=== PATIENT | female | born 1995 | race African-American/Black ===

== ENCOUNTER 2018-11-09 13:22 | Inpatient (IN) | payer OTHER ==
[~2018-11-09] VITALS: Ht 170.2 cm; Wt 68.3 kg
[2018-11-09 14:26] LABS: AMPHETAMINES LEVEL URINE NEGATIVE (NEGATIVE); BARBITURATES URINE NEGATIVE (NEGATIVE); BENZODIAZEPINES URINE NEGATIVE (NEGATIVE); CANNABINOIDS URINE NEGATIVE (NEGATIVE); COCAINE METABOLITE URINE NEGATIVE (NEGATIVE); METHADONE URINE NEGATIVE (NEGATIVE); OPIATES URINE NEGATIVE (NEGATIVE); PHENCYCLIDINE URINE NEGATIVE (NEGATIVE)
[2018-11-09 15:11] LABS: HCG, SERUM QUALITATIVE NEGATIVE (NEGATIVE)
[2018-11-09 15:19] LABS: HEMATOCRIT 41.4 % (36.0-47.0); HEMOGLOBIN 14.5 g/dl (12.0-15.5); MEAN CORPUSCULAR HEMOGLOBIN 32.6 pg (27.0-33.0); PLATELET COUNT, AUTOMATED 269 10^3/uL (150-450); RED BLOOD COUNT 4.45 10^6/uL (4.00-5.40); WHITE BLOOD COUNT 6.6 10^3/uL (4.0-10.0)
[2018-11-09 15:27] LABS: ACETAMINOPHEN LEVEL < 2.0 UG/ML (10.0-30.0); ALBUMIN 4.3 GM/DL (3.2-5.2); ALT/SGPT 21 U/L (12-78); BILIRUBIN,DIRECT 0.2 MG/DL (0.0-0.2); BILIRUBIN,TOTAL 0.8 MG/DL (0.2-1.0); BLOOD UREA NITROGEN 11 MG/DL (7-18); CALCIUM LEVEL 8.8 MG/DL (8.5-10.1); CARBON DIOXIDE LEVEL 21 MEQ/L (21-32); CHLORIDE LEVEL 107 MEQ/L (98-107); ETHYL ALCOHOL (ETHANOL) < 0.003 % (0.000-0.010); GLOMERULAR FILTRATION RATE > 60.0 (>60); GLUCOSE, FASTING 81 MG/DL (70-100); POTASSIUM SERUM 4.3 MEQ/L (3.5-5.1); SALICYLATE LEVEL < 1.7 MG/DL (5.0-30.0); SODIUM LEVEL 140 MEQ/L (136-145); THYROID STIMULATING HORMONE 0.567 uIU/ML (0.358-3.740); TOTAL PROTEIN 7.6 GM/DL (6.4-8.2)
[2018-11-09] MEDS ORDERED: MOM 30ML SUSPENSION UDC PO PRN (17:15)
[2018-11-09] MEDS ORDERED: ACETAMINOPHEN TAB 650MG DOSE (2X325MG) PO PRN (17:15)
[2018-11-09] MEDS ORDERED: MAALOX 30 ML SUSP *UDC PO PRN (17:15)
[2018-11-09] MEDS ORDERED: traZODone 50 MG TAB PO PRN (17:15)
[2018-11-09 17:47] VITALS: BP 123/64
[2018-11-10 06:20] VITALS: BP 114/58
--- NOTE | 2018-11-10 10:13 | HPEPDOC ---
[facility] Medical History & Physical Date of Admission Nov 09, 2018 History and Physical PCP: [facility] ATTENDING: Dr. Huber Candelario HPI: 23 yoF admitted to [facility] for unspecified depressive disorder, being medically examined today. No acute medical complaints today. Denies any fevers, chills, weakness, fatigue, GRIFFITH, CP, SOB, cough, palpitations, abdominal pain, N/V/D or changes in bowel or bladder habits. PMHx: Depression History of SI PSHX: Denies SOCHX: Resides in: [facility], from [place] Marital Status: Single Kids: None Employment: Active duty Tobacco use: One pack per day ETOH: Denies Illicit Drugs: Denies IV Drug Use: Denies Tattoos done unprofessionally: Denies FAMHX: Mother: Unknown Father: Unknown Siblings: 4 Alive, well Children: None Unexpected deaths due to medical reasons: None. ROS: As noted in HPI, otherwise 11pt ROS of systems reviewed and remarkable only for LMP 11/10/18 PE: GEN: 23 yo F, appears stated age. Well-nourished, well developed. No acute distress. Alert and oriented x 3. Pleasant, interactive. HEENT: Normocephalic, atraumatic. Pupils are equal, round, and reactive to light. Extraocular movements are intact. No nystagmus appreciated. Sclera are nonicteric. Conjunctiva without injection. Nose midline. Nasal turbinates without bogginess. EACs both patent BL. TMs both visualized and morrison with good cone of light, no bulging or erythema. No facial asymmetry. Moist mucous membranes. Dentition fair. Pharynx pink and moist, no cobblestoning. Neck supple, trachea midline. No lymphadenopathy or thyromegaly appreciated. CHEST: Regular rate and rhythm, +S1, +S2 LUNGS: Clear to auscultation bilaterally. No wheezes, rales, or rhonchi. Breathing appears symmetric and easy. Patient is speaking in full sentences. No accessory muscle use. ABD: Round, soft, non-tender, non-distended. +Bowel sounds throughout. No rebound or guarding. No costovertebral angle tenderness. EXT: Pulses 2+ bilaterally dorsalis pedis and radial. No lower extremity edema appreciated. SKIN: [place], dry, warm. Capillary refill <2sec. No rashes. NEURO: Alert and oriented x 3. Cranial nerves III-XII are intact. No focal deficits appreciated. EKG: Pending A&P: 23 yoF admitted to [facility] for unspecified depressive disorder 1. Psych. Plan per Psychiatry. Obtain baseline EKG to assure the safety of psychiatric medications as they can prolong the QT interval. 2. Nicotine dependence. Patch available. 3.Follow up with PCP on discharge. 4. Staff member Liliana RESENDIZ present throughout exam. Vital Signs Vital Signs Date Time Temp Pulse Resp B/P (MAP) Pulse Ox O2 Delivery O2 Flow Rate FiO2 11/10/18 06:20 99.1 99 12 114/58 (76) 11/09/18 17:47 100 11/09/18 14:46 Room Air Laboratory Data Labs 24H Laboratory Tests 2 11/09/18 13:52: Anion Gap 12, Glomerular Filtration Rate > 60.0, Calcium Level 8.8, Aspartate Amino Transf (AST/SGOT) 37, Alanine Aminotransferase (ALT/SGPT) 21, Alkaline Phosphatase 73, Total Bilirubin 0.8, Direct Bilirubin 0.2, Total Protein 7.6, Albumin 4.3, Albumin/Globulin Ratio 1.30, Thyroid Stimulating Hormone (TSH) 0.567, Human Chorionic Gonadotropin, Qual NEGATIVE, Salicylates Level < 1.7L, Urine Amphetamines Screen NEGATIVE, Urine Benzodiazepines Screen NEGATIVE, Urine Opiates Screen NEGATIVE, Urine Methadone Screen NEGATIVE, Acetaminophen Level < 2.0L, Urine Barbiturates Screen NEGATIVE, Urine Phencyclidine Screen NEGATIVE, Urine Cocaine Metabolite Screen NEGATIVE, Urine Cannabinoids Screen NEGATIVE, Ethyl Alcohol Level < 0.003 11/09/18 15:05: Nucleated Red Blood Cells % (auto) 0.0 CBC/BMP Laboratory Tests 11/09/18 13:52 11/09/18 15:05 Red Blood Count 4.45, Mean Corpuscular Volume 93.0, Mean Corpuscular Hemoglobin 32.6, Mean Corpuscular Hemoglobin Concent 35.0, Red Cell Distribution Width 11.9 Allergies Coded Allergies: No Known Allergies (Verified Allergy, Unknown, 11/09/18) Pati Nguyen Nov 10, 2018 10:13
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
[2018-11-10] MEDS: buPROPion **XL** TABLET 150MG (WELLBUTRIN XL) PO SCH (14:37)
[2018-11-10 18:00] VITALS: BP 137/57
[2018-11-10] MEDS: MIRTAZAPINE 15 MG TAB PO SCH (20:24)
[2018-11-11 06:40] VITALS: BP 106/53
[2018-11-11] MEDS: buPROPion **XL** TABLET 150MG (WELLBUTRIN XL) PO SCH (09:42)
[2018-11-11 18:00] VITALS: BP 119/55
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
[2018-11-11] MEDS: MIRTAZAPINE 15 MG TAB PO SCH (21:00)
[2018-11-12 06:45] VITALS: BP 106/71
[2018-11-12] MEDS: buPROPion **XL** TABLET 150MG (WELLBUTRIN XL) PO SCH ×2 (09:00→16:03)
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
[2018-11-12 18:24] VITALS: BP 125/71
[2018-11-12] MEDS: MIRTAZAPINE 15 MG TAB PO SCH (20:39)
[2018-11-13 06:35] VITALS: BP 102/57
[2018-11-13] MEDS: buPROPion **XL** TABLET 150MG (WELLBUTRIN XL) PO SCH ×2 (09:00→09:59)
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
[2018-11-13 18:14] VITALS: BP 138/80
[2018-11-13] MEDS: MIRTAZAPINE 15 MG TAB PO SCH (21:38)
[2018-11-14 06:49] VITALS: BP 116/70
[2018-11-14] MEDS ORDERED: MIRT15TA3 PO (10:20)
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
[2018-11-15] MEDS ORDERED: MIRT1TAB PO (09:53)
== END 2018-11-14 11:25 | disposition home or self-care (01) | DRG 885 ==
LOC: M ED 13:22 → M ED INP 17:08 → M PSY 17:55
PROVIDERS: ADMIT Psychiatry & Neurology Psychiatry; ATTEND Psychiatry & Neurology Psychiatry
DX: F32.89 Other specified depressive episodes (principal); F17.200 Nicotine dependence, unspecified, uncomplicated

== ENCOUNTER 2019-09-25 14:27 | Emergency (ER) | payer OTHER ==
[~2019-09-25] VITALS: Ht 167.6 cm; Wt 74.5 kg
[~2019-09-25 14:27] MED LIST: MIRT15TA3 PO; MIRT1TAB PO
[2019-09-25 16:13] LABS: HEMATOCRIT 43.5 % (36.0-47.0); HEMOGLOBIN 14.6 g/dl (12.0-15.5); MEAN CORPUSCULAR HEMOGLOBIN 31.3 pg (27.0-33.0); MEAN CORPUSCULAR HGB CONC 33.6 g/dl (32.0-36.5); MEAN CORPUSCULAR VOLUME 93.1 fl (80.0-96.0); PLATELET COUNT, AUTOMATED 287 10^3/uL (150-450); RED BLOOD COUNT 4.67 10^6/uL (4.00-5.40); WHITE BLOOD COUNT 5.7 10^3/uL (4.0-10.0)
[2019-09-25 16:39] LABS: HCG, SERUM QUALITATIVE NEGATIVE (NEGATIVE)
[2019-09-25 16:47] LABS: ACETAMINOPHEN LEVEL < 2.0 UG/ML (10.0-30.0); ALBUMIN 4.4 GM/DL (3.2-5.2); ALT/SGPT 21 U/L (12-78); BILIRUBIN,DIRECT 0.2 MG/DL (0.0-0.2); BILIRUBIN,TOTAL 0.6 MG/DL (0.2-1.0); BLOOD UREA NITROGEN 17 MG/DL (7-18); CALCIUM LEVEL 9.2 MG/DL (8.5-10.1); CARBON DIOXIDE LEVEL 25 MEQ/L (21-32); CHLORIDE LEVEL 109 MEQ/L (98-107); CREATININE FOR GFR 0.71 MG/DL (0.55-1.30); ETHYL ALCOHOL (ETHANOL) < 0.003 % (0.000-0.010); GLOMERULAR FILTRATION RATE > 60.0 (>60); GLUCOSE, FASTING 106 MG/DL (70-100); POTASSIUM SERUM 3.7 MEQ/L (3.5-5.1); SALICYLATE LEVEL < 1.7 MG/DL (5.0-30.0); SODIUM LEVEL 142 MEQ/L (136-145); THYROID STIMULATING HORMONE 0.756 uIU/ML (0.358-3.740); TOTAL PROTEIN 7.2 GM/DL (6.4-8.2)
[2019-09-25 17:42] LABS: AMPHETAMINES LEVEL URINE NEGATIVE (NEGATIVE); BARBITURATES URINE NEGATIVE (NEGATIVE); BENZODIAZEPINES URINE NEGATIVE (NEGATIVE); CANNABINOIDS URINE NEGATIVE (NEGATIVE); COCAINE METABOLITE URINE NEGATIVE (NEGATIVE); METHADONE URINE NEGATIVE (NEGATIVE); OPIATES URINE NEGATIVE (NEGATIVE); PHENCYCLIDINE URINE NEGATIVE (NEGATIVE)
[2019-09-25 19:45] VITALS: BP 139/74
== END 2019-09-25 19:47 | disposition home or self-care (01) ==
LOC: M ED 14:27
DX: F33.9 Major depressive disorder, recurrent, unspecified (principal); M41.9 Scoliosis, unspecified; F17.210 Nicotine dependence, cigarettes, uncomplicated
CPT/HCPCS: 36415; 80048; 80076; 80307; 84443; 84703; 85027; 99284; G0480

== ENCOUNTER 2019-10-02 20:27 | Emergency (ER) | payer OTHER ==
[~2019-10-02] VITALS: Ht 167.6 cm; Wt 66.0 kg
[2019-10-02 21:00] LABS: HEMOGLOBIN 15.5 g/dl (12.0-15.5); MEAN CORPUSCULAR HGB CONC 34.4 g/dl (32.0-36.5); PLATELET COUNT, AUTOMATED 316 10^3/uL (150-450); RED BLOOD COUNT 4.84 10^6/uL (4.00-5.40); WHITE BLOOD COUNT 7.4 10^3/uL (4.0-10.0)
[2019-10-02 21:20] LABS: HCG, SERUM QUALITATIVE NEGATIVE (NEGATIVE)
[2019-10-02 21:45] LABS: ACETAMINOPHEN LEVEL < 2.0 UG/ML (10.0-30.0); ALBUMIN 4.6 GM/DL (3.2-5.2); ALT/SGPT 21 U/L (12-78); BILIRUBIN,DIRECT 0.2 MG/DL (0.0-0.2); BILIRUBIN,TOTAL 0.5 MG/DL (0.2-1.0); BLOOD UREA NITROGEN 9 MG/DL (7-18); CALCIUM LEVEL 8.9 MG/DL (8.5-10.1); CARBON DIOXIDE LEVEL 28 MEQ/L (21-32); CHLORIDE LEVEL 111 MEQ/L (98-107); CREATININE FOR GFR 0.75 MG/DL (0.55-1.30); ETHYL ALCOHOL (ETHANOL) 0.227 % (0.000-0.010); GLOMERULAR FILTRATION RATE > 60.0 (>60); GLUCOSE, FASTING 80 MG/DL (70-100); POTASSIUM SERUM 3.4 MEQ/L (3.5-5.1); SALICYLATE LEVEL < 1.7 MG/DL (5.0-30.0); SODIUM LEVEL 144 MEQ/L (136-145); TOTAL PROTEIN 7.5 GM/DL (6.4-8.2)
[2019-10-03 06:19] VITALS: BP 128/93
== END 2019-10-03 06:22 | disposition home or self-care (01) ==
LOC: M ED 20:27 → EDBD 20:27 → M ED 10-03 06:22
DX: F10.120 Alcohol abuse with intoxication, uncomplicated (principal); F32.9 Major depressive disorder, single episode, unspecified; Z60.9 Problem related to social environment, unspecified
CPT/HCPCS: 80048; 80076; 84443; 84703; 85027; 99284; G0480

== ENCOUNTER 2019-12-28 15:13 | Inpatient (IN) | payer OTHER ==
[~2019-12-28] VITALS: Ht 170.2 cm; Wt 73.6 kg
[2019-12-28] MEDS ORDERED: [UNRECOGNIZED DRUG - REMARK] (15:19)
[2019-12-28 16:14] LABS: HEMATOCRIT 42.9 % (36.0-47.0); HEMOGLOBIN 14.6 g/dl (12.0-15.5); MEAN CORPUSCULAR HEMOGLOBIN 31.9 pg (27.0-33.0); MEAN CORPUSCULAR VOLUME 93.7 fl (80.0-96.0); PLATELET COUNT, AUTOMATED 261 10^3/uL (150-450); RED BLOOD COUNT 4.58 10^6/uL (4.00-5.40); WHITE BLOOD COUNT 6.9 10^3/uL (4.0-10.0)
[2019-12-28 16:47] LABS: HCG, SERUM QUALITATIVE NEGATIVE (NEGATIVE)
[2019-12-28 16:53] LABS: ACETAMINOPHEN LEVEL < 2.0 UG/ML (10.0-30.0); ALBUMIN 3.9 GM/DL (3.2-5.2); ALT/SGPT 18 U/L (12-78); BILIRUBIN,DIRECT 0.1 MG/DL (0.0-0.2); BILIRUBIN,TOTAL 0.4 MG/DL (0.2-1.0); BLOOD UREA NITROGEN 19 MG/DL (7-18); CALCIUM LEVEL 8.4 MG/DL (8.5-10.1); CARBON DIOXIDE LEVEL 26 MEQ/L (21-32); CHLORIDE LEVEL 108 MEQ/L (98-107); CREATININE FOR GFR 0.71 MG/DL (0.55-1.30); GLOMERULAR FILTRATION RATE > 60.0 (>60); GLUCOSE, FASTING 89 MG/DL (70-100); POTASSIUM SERUM 3.8 MEQ/L (3.5-5.1); SODIUM LEVEL 140 MEQ/L (136-145); THYROID STIMULATING HORMONE 0.494 uIU/ML (0.358-3.740); TOTAL PROTEIN 6.9 GM/DL (6.4-8.2)
[2019-12-28 16:54] LABS: ETHYL ALCOHOL (ETHANOL) < 0.003 % (0.000-0.010)
[2019-12-28 18:34] LABS: AMPHETAMINES LEVEL URINE NEGATIVE (NEGATIVE); BARBITURATES URINE NEGATIVE (NEGATIVE); BENZODIAZEPINES URINE NEGATIVE (NEGATIVE); CANNABINOIDS URINE NEGATIVE (NEGATIVE); COCAINE METABOLITE URINE NEGATIVE (NEGATIVE); METHADONE URINE NEGATIVE (NEGATIVE); OPIATES URINE NEGATIVE (NEGATIVE); PHENCYCLIDINE URINE NEGATIVE (NEGATIVE)
[2019-12-28] MEDS ORDERED: DEPRESSION MED PO (19:42)
[2019-12-28] MEDS ORDERED: PATIENT COMMENT (19:42)
[2019-12-28] MEDS ORDERED: SLEEP MED PO (19:42)
[2019-12-28] MEDS ORDERED: MOM 30ML SUSPENSION UDC PO PRN (21:45)
[2019-12-28] MEDS ORDERED: MAALOX 30 ML SUSP *UDC PO PRN (21:45)
--- NOTE | 2019-12-28 22:22 | ECGEPIP ---
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
[2019-12-29 00:35] VITALS: BP 130/73
[2019-12-29 06:17] VITALS: BP 124/66
[2019-12-29] MEDS ORDERED: TRAZ-252 PO (07:35)
[2019-12-29] MEDS ORDERED: FLUO20CA20 PO (07:35)
--- NOTE | 2019-12-29 09:12 | MHHPEPDOC ---
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 She reports she did not seek medical care at that time and was primarily focusing on her suicidal thoughts in the session. She was brought in and admitted on abundance of caution. However, the patient refused to meet with me today as she was upset about being admitted. Review Of Systems Patient refuses interview. Past Psychiatric History Has a history of depression in the past, suicide attempt as mentioned before. No history of inpatient admissions that can be determined. Allergies Please see below. Family Psychiatric History Unclear. Social History Patient is a current active duty soldier. Unclear if any legal problems or difficulties with engagement in her job. Substance Abuse History Toxicology negative. Medical History No notable chart findings. Mental Status Examination Patient refuses interview. Diagnoses Unspecified depressive disorder. Assessment and Plan Unspecified depressive disorder: Will attempt to engage patient better for treatment and interview. Disposition Patient will need to be retained further on involuntary as she is likely demonstrating very poor insight into the situation and is behaviorally uncooperative further increasing her risk of harm to herself. Problem List 1. Risk for suicide. 2. Ineffective coping. Initial Treatment Plan 1. Patient was admitted on a 9.39 legal status. 2. Complete history was obtained. 3. With patients permission, family will be contacted and database will be expanded. 4. Patients medication regimen will be reviewed and changed accordingly. 5. Patient will be provided with protected environment. 6. Patient will be treated with individual, group, and milieu therapies. 7. Patient will receive supportive psych-education. 8. Discharge planning will commence immediately. 9. Outpatient follow-up treatment will be strongly recommended. 10. The initial treatment plan will focus initially on: Estimated Length Of Stay 3 days. Time Spent 70 minutes with greater than 50% of time spent on counseling/coordination of care. Wednesday Vital Signs Vital Signs Date Time Temp Pulse Resp B/P (MAP) Pulse Ox O2 Delivery O2 Flow Rate FiO2 12/29/19 06:17 98.6 80 14 124/66 (85) 98 Room Air Laboratory Data 24H Labs Laboratory Tests 2 12/28/19 15:37: Nucleated Red Blood Cells % (auto) 0.0, Anion Gap 6L, Glomerular Filtration Rate > 60.0, Calcium Level 8.4L, Total Bilirubin 0.4, Direct Bilirubin 0.1, Aspartate Amino Transf (AST/SGOT) 16, Alanine Aminotransferase (ALT/SGPT) 18, Alkaline Phosphatase 71, Total Protein 6.9, Albumin 3.9, Albumin/Globulin Ratio 1.3, Thyroid Stimulating Hormone (TSH) 0.494, Human Chorionic Gonadotropin, Qual NEGATIVE, Salicylates Level 2.0L, Acetaminophen Level < 2.0L, Ethyl Alcohol Level < 0.003 12/28/19 17:40: Urine Opiates Screen NEGATIVE, Urine Methadone Screen NEGATIVE, Urine Barbiturates Screen NEGATIVE, Urine Phencyclidine Screen NEGATIVE, Urine Amphetamines Screen NEGATIVE, Urine Benzodiazepines Screen NEGATIVE, Urine Cocaine Metabolite Screen NEGATIVE, Urine Cannabinoids Screen NEGATIVE CBC/BMP Laboratory Tests 12/28/19 15:37 Medications Scheduled Fluoxetine Hcl (Fluoxetine HCl) 20 Mg Capsule, 20 MG PO DAILY for DEPRESSION, (Reported) Scheduled PRN Trazodone HCl (Trazodone HCl) 50 Mg Tablet, 50 MG PO QHS PRN for SLEEP, (Reported) PATIENT TAKES 1 TO 2 TABS Allergies Coded Allergies: No Known Allergies (Verified Allergy, Unknown, 11/09/18) ALEJANDRA WATTS DO December 29, 2019 09:12
[2019-12-29 16:03] VITALS: BP 133/73
--- NOTE | 2019-12-29 17:21 | HPEPDOC ---
General Date of Admission December 28, 2019 at 21:40 Date of Service: December 29, 2019 Chief Complaint The patient is a 24-year-old female admitted with a reason for visit of Unspecified Depression. Source: Patient Exam Limitations: No limitations Severity: Moderate History of Present Illness Patient is 24 years old female with past medical history of depression and anxiety, who was admitted in the hospital with suicidal ideation. She denied any cardiovascular problem, breathing problem, GI problem or dysuria. He denies fever, chills, nausea, vomiting, shortness of breath, palpitations, diarrhea or dysuria Home Medications Scheduled Fluoxetine Hcl (Fluoxetine HCl) 20 Mg Capsule, 20 MG PO DAILY for DEPRESSION, (Reported) Scheduled PRN Trazodone HCl (Trazodone HCl) 50 Mg Tablet, 50 MG PO QHS PRN for SLEEP, (Reported) PATIENT TAKES 1 TO 2 TABS Allergies Coded Allergies: No Known Allergies (Verified Allergy, Unknown, 11/09/18) Past Medical History Medical History Depression and anxiety Family History Patient denied any questions about family history Social History * Smoker: current smoker Alcohol: occationally Drugs: denies A-FIB/CHADSVASC A-FIB History Current/History of A-Fib/PAF?: No Current PO Anticoag Therapy: No Review of Systems Constitutional: Denies: Chills, Fever, Malaise, Night Sweats, Weakness, Fatigue, Weight Loss, Lethargy, Other Eyes: Denies: Pain, Vision change ENT: Denies: Head Aches, Ear Pain, Dysphagia Skin: Denies: Rash, Lesions, Breakdown Pulmonary: Denies: Dyspnea, Cough Cardiovascular: Denies: Chest Pain, Palpitations, Orthopnea, Paroxysmal Noc. Dyspnea, Lt Headedness Gastrointestinal: Denies: Nausea, Vomiting, Abdominal Pain, Diarrhea Genitourinary: Denies: Dysuria, Frequency, Incontinence, Retention Hematologic: Denies: Bruising, Bleeding Excessively Musculoskeletal: Denies: Neck Pain, Back Pain, Joint Pain, Muscle Pain, Spasms Neurological: Denies: Weakness, Numbness, Change in speech, Confusion Psych: Reports: Anxiety, Depression; Denies: Mood Normal Physical Examination General Exam: Positive: Alert, Mild Distress Eye Exam: Positive: PERRLA, Conjunctiva & lids normal, EOMI; Negative: Sclera icteric ENT Exam: Positive: Atraumatic, Mucous membr. moist/pink, Pharynx Normal Neck Exam: Positive: Supple; Negative: JVD, thyromegaly Chest Exam: Positive: Clear to auscultation, Normal air movement Heart Exam: Positive: Rate Normal, Regular Rhythm, Normal S1, Normal S2; Negative: Murmurs, Rubs Telemetry: Positive: No significant arrhythmia Abdomen Exam: Positive: Normal bowel sounds, Soft; Negative: Tenderness, Hepatospenomegaly Extremity Exam: Positive: Normal pulses; Negative: Clubbing, Cyanosis, Edema Skin Exam: Positive: Nl turgor and temperature; Negative: Breakdown, Lesion Neuro Exam: Positive: Normal Gait, Normal Speech, Cranial Nerves 3-12 NL, Reflexes 2+ Psych Exam: Positive: Anxiety, Oriented x 3 Vital Signs Vital Signs Date Time Temp Pulse Resp B/P (MAP) Pulse Ox O2 Delivery O2 Flow Rate FiO2 12/29/19 16:03 98.1 73 18 133/73 (93) 12/29/19 06:17 98 Room Air Laboratory Data Labs 24H Laboratory Tests 2 12/28/19 17:40: Urine Opiates Screen NEGATIVE, Urine Methadone Screen NEGATIVE, Urine Barbiturates Screen NEGATIVE, Urine Phencyclidine Screen NEGATIVE, Urine Amphetamines Screen NEGATIVE, Urine Benzodiazepines Screen NEGATIVE, Urine Cocaine Metabolite Screen NEGATIVE, Urine Cannabinoids Screen NEGATIVE Assessment/Plan Patient is 24 years old female with past medical history of depression and anxiety, who was admitted in the hospital with suicidal ideation. She denied any cardiovascular problem, breathing problem, GI problem or dysuria. He denies fever, chills, nausea, vomiting, shortness of breath, palpitations, diarrhea or dysuria Problems (1) Depression with suicidal ideation Status: Acute Problem Text: We will defer treatment for depression to psych team Plan / VTE VTE Prophylaxis Ordered?: No VTE Exclusion Mechanical Proph: Low Risk for VTE ERNESTO CLEMONS DO December 29, 2019 17:21
[2019-12-29] MEDS: ACETAMINOPHEN TAB 650MG DOSE (2X325MG) PO PRN (18:01)
[2019-12-30] MEDS: ACETAMINOPHEN TAB 650MG DOSE (2X325MG) PO PRN ×2 (00:06→23:23)
[2019-12-30] MEDS: traZODone 50 MG TAB PO PRN ×2 (00:06→23:23)
[2019-12-30 06:33] VITALS: BP 106/60
[2019-12-30 16:16] VITALS: BP 101/59
[2019-12-31 06:32] VITALS: BP 122/58
--- NOTE | 2019-12-31 09:47 | MHIPN ---
DATE OF SERVICE: 12/30/2019 The patient today tells me "I am doing alright." She says that he slept good. She is denying suicidal ideations and she really is minimizing the event prior to admission and I think this is because she wants to get discharged at this point. MENTAL STATUS EXAMINATION: I think she is guarded. She is alert and oriented times three. Her eye contact is poor. Psychomotor activity is decreased. There is no formal thought disorder noted. She says her mood is good. Her affect is flat. She is not psychotic. She denies suicidal or homicidal ideations. Concentration is fair. Memory intact. Insight and judgment poor. DIAGNOSIS: Unspecified depressive disorder. TREATMENT PLAN: At this point, the patient I feel is still minimizing symptoms prior to admission. She wants to be discharged and her insight remains very poor regarding her recent overdose. I feel that she continues to be a risk, and I suspect that there is significant underlying depression and she would benefit from taking medications but she is resistive at this point.
[2019-12-31 16:09] VITALS: BP 128/58
[2019-12-31] MEDS: ACETAMINOPHEN TAB 650MG DOSE (2X325MG) PO PRN (21:08)
[2019-12-31] MEDS: traZODone 50 MG TAB PO PRN (21:08)
[2020-01-01] MEDS ORDERED: diphenhydrAMINE 50MG CAP PO ONE (01:15)
[2020-01-01 06:37] VITALS: BP 121/57
--- NOTE | 2020-01-01 11:38 | MHDSPDOC ---
[facility] Discharge Summary Discharge Summary DATE OF ADMISSION: December 28, 2019 at 21:40 DATE OF DISCHARGE: 01/01/2020 Discharge Eliecer Vazquez MRN: N/A Date of : N/A Date of Service: 01/01/2020 Diagnoses Unspecified depressive disorder. 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 She reports she did not seek medical care at that time and was primarily focusing on her suicidal thoughts in the session. She was brought in and admitted on abundance of caution. However, the patient refused to meet with me today as she was upset about being admitted. Consultants Involved Hospitalist/PCP screening Treatment and Progress On The Unit The patient was admitted to the inpatient mental health unit. Initially, she refused to meet with the provider for the intake. However, she did eventually meet with the weekend providers for further discussion about her potential care. She generally declined any medications and was observed for suicidal thinking of which none was detected over the several days on our unit. She did not have many behavioral problems other than being dismissive at times. She did not demonstrate any overt violence or aggression. She was observed for an extensive period of time and discharged without incident at her request. Discharge Assessment 24-year-old woman who presents after reportedly making statements to her therapist. On observation, she generally may have poor to fair insight about the situation, but generally does not demonstrate any concerning behavior that can be constituted to demonstrate imminent risk at this time. She is generally more amenable today than she had been originally. The patient at the time of discharge did not meet criteria for involuntary admission/extension due to having a improved mental status exam, improved insight into the situation, They are engaged in the discharge process, as well as being friendly and amenable in behavioral control and havent been engaging in any observed concerning behavior or ideation recently. They decline voluntary extension/admission at this time and must be discharged in good simón, as Im unable to make a case for holding the patient against their will. They may have historical risk factors of admissions and other interactions with psychiatry however, those are not modifiable from a clinical perspective. The patient will need to be discharged in good simón. Mental Status Examination General: Well dressed with good hygiene Speech: Spontaneous and fluid Thought processes: Linear and logical MSK: Smooth and coordinated gait, no signs of tremors or involuntary orofacial movements Thought content: Future orientated Abstract reasoning, and computation: Intact Description of associations: Intact Description of abnormal or psychotic thoughts: Denies any suicidal or homicidal ideation. Denies any auditory or visual hallucinations. Does not appear to be responding to internal stimuli. Does not appear to be endorsing any bizarre or paranoid ideation. Judgment: Improved. Insight: Improved. Orientation: Alert and orientated 3 Cognition: Grossly normal Recent and remote memory: Intact Attention span and concentration: Intact Fund of knowledge: Adequate Mood: "okay" Affect: More euthymic. Follow Up The social work team worked during the predischarge meeting in order to evaluate for further issues of lethality address them fully before discharge. They worked on safety planning with the patient's family members in order to ensure that the patient will have a safe and effective discharge. Time Spent The amount of time spent in the coordination of care for this patient was approximately 45 minutes. Wednesday Vital Signs/I&Os Vital Signs Date Time Temp Pulse Resp B/P (MAP) Pulse Ox O2 Delivery O2 Flow Rate FiO2 01/01/20 06:37 98.1 72 16 121/57 (78) Room Air 12/30/19 06:33 99 Medications No Active Prescriptions or Reported Meds Allergies Coded Allergies: No Known Allergies (Verified Allergy, Unknown, 11/09/18) ALEJANDRA WATTS DO January 01, 2020 11:38
--- NOTE | 2020-01-01 22:49 | MHIPN ---
DATE: 12/31/2019 States that today she is feeling "content." She says she slept good. She insists that she is not depressed and that she is not having any suicidal ideations. She insists that her overdose was not a suicidal attempt. MENTAL STATUS EXAM: She is alert and oriented times three. Eye contact is fair. Psychomotor activity is decreased. There is no formal thought disorder noted. She is verbally spontaneous. She says that her mood is "content." and affect is constricted and appropriate. She denies suicidal or homicidal ideations. She is not psychotic. Concentration is fair. Memory is intact. Insight and judgment is fair. DIAGNOSIS: Unspecified depressive disorder. TREATMENT PLAN: At this point, we will continue to monitor the patient for continued elevation and stabilization of her mood and continued resolution of suicidal ideations. ANABELA
== END 2020-01-01 13:40 | disposition home or self-care (01) | DRG 881 ==
LOC: M ED 15:13 → M ED INP 21:40 → M PSY 12-29 00:29
PROVIDERS: ADMIT Psychiatry & Neurology Addiction Medicine; ATTEND Psychiatry & Neurology Addiction Medicine
DX: F32.9 Major depressive disorder, single episode, unspecified (principal); R45.851 Suicidal ideations; Z91.5 Personal history of self-harm; Z79.899 Other long term (current) drug therapy